=== PATIENT | male | born 1965 | race Caucasian/White ===

== ENCOUNTER 2024-07-14 16:16 | Outpatient (AMB) | payer OTHER, SELFPAY ==
--- NOTE | 2024-07-14 16:34 | MHC.PC.OV ---
Vital Signs 07/14/24 16:35 Height 5 ft 8 in Weight 198 lb 6 oz BMI 30.2 BP 108/64 Blood Pressure Location Lt brachial Position Sitting Pulse 74 Pulse Source Pulse Oximeter Pulse Oximetry (%) 96 Oxygen Delivery Method Room Air Intake Visit Reasons: establish care Door Trimmer Required: No Accompanied by: Self / Same As Patient Allergies penicillin G [PENICILLIN G] Allergy (Intermediate, Verified 07/14/24 16:47) RASH Medication List - Last Reconciled 07/14/24 by Ramsey Conklin MD azelastine 1 spray intranasal BID fluticasone propionate 50 mcg/actuation 1 spray intranasal DAILY levocetirizine (Xyzal) 5 mg PO DAILY Tobacco use date assessed: 07/14/24 Dental Screening Dental Screen Date: 07/14/24 Did you have a dental visit in the last 12 months?: Yes Did you have a dental problem in the last 6 months where you did not have access to dental care?: No Was dental information given to patient?: Patient has dentist HPI establish care HPI Details Patient comes in today his annual physical examination and reestablish care - he has not been back in over 4 years and was last seen here on 04/26/2020 Patient states that he feels well and has not had any significant issues since he was last seen here He denies any headaches or dizziness Denies any chest pains, no shortness of breath No nausea/ vomiting, no abdominal pain No change in bowel habits noted He denies any acute urinary symptoms He would like to have some testing done for STDs as well together with his other routine labs - states that he has no symptoms of STDs but just wants to get checked and be safe Relates that he has had his screening colonoscopy last done with Dr. Merrill sometime in 2018 and was advised that his next colonoscopy will be in 10 years (2027) [facility] Medical History (Updated 07/15/24 @ 04:14 by Ramsey Conklin MD) Obesity (BMI 30-39.9) Overweight (BMI 25.0-29.9) Allergic rhinitis Surgical History (Updated 07/14/24 @ 16:56 by Ramsey Conklin MD) History of colonoscopy Family History Other Family history non-contributory Social History Housing: House Alcohol intake: former Patient Tobacco Use Status: Former Tobacco user e-Cigarette/Vaping Use: Currently Using service: No Current occupational status: employed Current occupational exposures/hazards: No Cognitive needs: No Hearing needs: No Vision needs: No Questionnaire PHQ-9 Over the last 2 weeks, how often have you been bothered by any of the following problems? 1. Little interest or pleasure in doing things: not at all 2. Feeling down, depressed, or hopeless: not at all 3. Trouble falling or staying asleep, or sleeping too much: not at all 4. Feeling tired or having little energy: not at all 5. Poor appetite or overeating: not at all 6. Feeling bad about yourself - or that you are a failure or have let yourself or your family down: not at all 7. Trouble concentrating on things, such as reading the newspaper or watching television: not at all 8. Moving or speaking so slowly that other people could have noticed. Or the opposite - being so fidgety or restless that you have been moving around a lot more than usual: not at all 9. Thoughts that you would be better off or of hurting yourself in some way: not at all Total score: 0 Depression Screening Interpretation: Negative Depression Screening Done: Yes 33273 - PHQ-9 Billing: Yes Source: Developed by Drs. Nikita Segovia, Karishma Pena, Domenic Coelho and colleagues, with an educational nivia from [employer]. Thrive Questionnaire Date Thrive assessed: 07/14/24 I am a: Patient What is your living situation today?: I have a steady place to live Within the past 12 months, did the food you bought not last and you didn't have the money to get more?: Never true Within the past 12 months, did you worry whether your food would run out before you got money to buy more?: Never true Do you have trouble paying for medicines?: No Do you have trouble getting transportation to medical appointments?: No Do you have trouble paying your heating and electricity bill?: No Do you have trouble taking care of your child, family member or friend?: No Do you have trouble with day-to-day activities such as bathing, preparing meals, shopping, managing finances, etc.?: No Are you currently unemployed and looking for a job?: No Are you interested in more education?: No Please select the resources that you would like help with: None Currently or been in a relationship where the following occur: I choose not to answer THRIVE Score: 0 AUDIT C Alcohol Use Questionnaire (AUDIT-C) 1. How often do you have a drink containing alcohol?: Monthly or less 2. How many drinks containing alcohol do you have on a typical day when you are drinking?: 1 or 2 3. How often do you have six or more drinks on one occasion?: Never Total Score: 1 Score Reviewed/Action Taken: Yes ELIU-7 AMB Questionnaire ELIU-7 Date ELIU - 7 assessed: 07/14/24 Feeling nervous, anxious, or on edge: 0 = Not at all Not being able to stop or control worryin = Not at all Worrying too much about different things: 0 = Not at all Trouble relaxin = Not at all Being so restless that it is hard to sit still: 0 = Not at all Becoming easily annoyed or irritable: 0 = Not at all Feeling afraid as if something awful might happen: 0 = Not at all Total ELIU-7 score (0-4 normal; 5-9 mild; 10-14 moderate; 15-21 severe): 0 Source: Developed by Drs. Nikita Segovia, Karishma Pena, Domenic Coelho and colleagues, with an educational nivia from [employer]. Review of Systems Const Denies chills, Denies fatigue, Denies fever(s), Denies headache(s), Denies malaise and Denies weakness Eyes Denies blurry vision, Denies change in vision, Denies irritation and Denies itchy eyes ENT Denies dysphagia, Denies dizziness, Denies otalgia, Denies headache(s), Denies nasal congestion, Denies neck pain, Denies odynophagia and Denies sore throat Card Denies chest pain, Denies rapid heart rate, Denies irregular heart rhythm, Denies palpitations and Denies dyspnea Resp Denies chest congestion, Denies cough, Denies dyspnea and Denies wheezing GI Denies abdominal pain, Denies bloating, Denies constipation, Denies dysphagia, Denies heartburn, Denies diarrhea, Denies nausea, Denies odynophagia and Denies vomiting Denies hematuria, Denies difficulty urinating, Denies dysuria, Denies urinary frequency and Denies urinary urgency Musc Denies back pain, Denies arthralgias, Denies joint swelling, Denies muscle weakness and Denies neck pain Skin/Breast Denies change in pigmentation, Denies lesions, Denies rash and Denies unusual bruising Neuro Denies dizziness, Denies headache(s), Denies paresthesias and Denies weakness Endo Denies fatigue and Denies palpitations Aller/Immun Denies itchy eyes and Denies wheezing Physical exam (Primary Care) Vital Signs: Last Vital Signs Pulse 74 07/14/24 16:35 BP 108/64 07/14/24 16:35 Pulse Ox 96 07/14/24 16:35 Oxygen Delivery Method Room Air 07/14/24 16:35 BMI result Body Mass Index 30.2 Tobacco/Smoking Status: Tobacco use Status Tobacco use date assessed 07/14/24 07/14/24 16:40 Patient Tobacco Use Status Former Tobacco user 07/14/24 16:40 e-Cigarette/Vaping Use Currently Using 07/14/24 16:40 PHQ-9: PHQ-9 Score PHQ-9: Total score 0 07/14/24 16:57 Depression Screening Interpretation: Negative Thrive Assessment: Date of Thrive Assessment Date Thrive assessed 07/14/24 07/14/24 16:40 Currently or been in a relationship where the following occur: I choose not to answer Const General: no acute distress, alert and awake Orientation/consciousness: patient oriented x3 [facility] Head: Yes normocephalic and Yes atraumatic Ears: external ears normal, TM's normal bilaterally and EAC's normal General nose exam: No nasal discharge present Face and sinus: Yes normal facial exam and Yes sinuses nontender Teeth and gingiva: dentition normal Throat: Yes posterior oropharynx normal and Yes tonsils normal (no TP congestion) Eyes Eyelids: Yes eyelids normal Conjunctivae: conjunctivae normal Pupils: Equal, round and reactive pupils present EOM: EOMs intact bilaterally Neck Neck: Yes no lymphadenopathy and Yes supple Thyroid: Thyroid normal Resp Auscultation: clear to auscultation bilaterally, no rales and no wheezes Cardio Rate: regular rate Rhythm: regular rhythm Heart sounds: no murmurs GI Palpation (GI): Soft to palpation, nontender and No hepatosplenomegaly present Auscultation: normal bowel sounds General: Yes no CVA tenderness Back/Spine/Pelvis Back: no CVA tenderness Thoracic/Lumbar Spine: thoracic and lumbar spine normal to inspection Skin Lesions: no lesions Rashes: no rashes Neuro General: patient oriented x3, moves all extremities, no focal motor deficits and CN's II-XI intact bilaterally Cranial nerves: Yes Equal, round and reactive pupils present Cognition (Neuro): normal cognition Gait exam (Neuro): Normal gait present Extrem General: Yes no clubbing, cyanosis or edema Coding Level of Care Code New Pt Prev Care 40-64y(59912) Diagnoses Annual physical exam Z00.00 Allergic rhinitis, unspecified seasonality, unspecified trigger J30.9 Allergic rhinitis trigger: unspecified Allergic rhinitis seasonality: unspecified Obesity (BMI 30-39.9) E66.9 Additional Codes PHQ-9 - 89993 - PHQ-9 Billing: Yes ([id number]) Assessment & Plan Assessment & Plan (1) Annual physical exam: Code(s): Z00.00 - Encounter for general adult medical examination without abnormal findings Category: Medical Plan: Check labs Per request, will also include HIV and STD testing with his routine lab orders He is up-to-date with his colon cancer screening - he reportedly had his next screening colonoscopy last done with Dr. Merrill in 2018 and was advised that his next colonoscopy will be in 10 years (2027) (2) Allergic rhinitis: Code(s): J30.9 - Allergic rhinitis, unspecified Category: Medical Qualifiers: Allergic rhinitis trigger: unspecified Allergic rhinitis seasonality: unspecified Qualified Code(s): J30.9 - Allergic rhinitis, unspecified Plan: Continue levo cetirizine 5 mg QD PRN and Fluticasone 50 mcg nasal spray QD PRN Patient also uses OTC Azelastine nasal spray BID PRN as an alternative to Fluticasone when he feels that Fluticasone is not effective (3) Obesity (BMI 30-39.9): Code(s): E66.9 - Obesity, unspecified Category: Medical Plan: Reinforced of diet/exercise as tolerated/lose weight - patient has gained some weight since he was last seen here over 4 years ago Plan To return in 1 year for his next annual physical examination Orders: Orders Hepatitis B,C Profile 07/14/24 Z20.2 - Contact with and (suspected) exposure to infections with a predominantly sexual mode of transmission Syphilis Screen 07/14/24 Z20.2 - Contact with and (suspected) exposure to infections with a predominantly sexual mode of transmission Comprehensive [place]. Panel Fast 07/14/24 E78.00 - Pure hypercholesterolemia, unspecified, Z00. - Encounter for general adult medical examination without abnormal findings Lipid Panel 07/14/24 E78.00 - Pure hypercholesterolemia, unspecified, Z00.00 - Encounter for general adult medical examination without abnormal findings UA CC w/rflx Micro + Cult 07/14/24 R30.0 - Dysuria, Z00. - Encounter for general adult medical examination without abnormal findings Vitamin D 25-OH Total 07/14/24 E55.9 - Vitamin D deficiency, unspecified, Z00. - Encounter for general adult medical examination without abnormal findings HIV Ab/Ag 07/14/24 Z20.2 - Contact with and (suspected) exposure to infections with a predominantly sexual mode of transmission CT NG by PCR 07/14/24 Z20.2 - Contact with and (suspected) exposure to infections with a predominantly sexual mode of transmission Complete Blood Count Auto Diff 07/14/24 D64.9 - Anemia, unspecified, Z00.00 - Encounter for general adult medical examination without abnormal findings TSH reflex Free T4 07/14/24 E78.00 - Pure hypercholesterolemia, unspecified, Z00.00 - Encounter for general adult medical examination without abnormal findings
[2024-07-14 16:35] VITALS: BP 108/64; PULSE 74; O2SAT 96; BMI 30.2
== END 2024-07-14 17:03 | disposition home or self-care (01) ==
PROVIDERS: Visit Provider Internal Medicine
DX: Z00.00 Encounter for general adult medical examination without abnormal findings (principal); J30.9 Allergic rhinitis, unspecified; E66.9 Obesity, unspecified; Z68.30 Body mass index [BMI] 30.0-30.9, adult

== ENCOUNTER → 2024-07-14 16:16 | Outpatient (BNVA) | payer OTHER, SELFPAY | PROVIDERS: Visit Provider Internal Medicine | DX: Z00.00 Encounter for general adult medical examination without abnormal findings (principal); J30.9 Allergic rhinitis, unspecified; E66.9 Obesity, unspecified; Z68.30 Body mass index [BMI] 30.0-30.9, adult | CPT/HCPCS: 96127 ==

== ENCOUNTER 2024-09-07 06:19 | Outpatient (REF) | payer OTHER, SELFPAY ==
--- OUTSIDE RECORDS SUMMARY | 2024-09-07 06:23 | XMS_ITS | Clinical Summary ---
Author Organization [facility] Address [address] [place] [address] Care Team Providers Care Drum Tender Name Role Phone Gordo Noble Primary Care Provider Unavailabl e Medications Levocetirizine Dihydrochloride (XYZAL) 5 MG tablet TAKE 1 TABLET AT BEDTIME NEEDED 90 0 0 Active montelukast (SINGULAIR) 10 MG tablet Take 1 tablet daily 90 tablet 0 0 Active amLODIPine Besylate (NORVASC) 5 MG tablet TAKE 1 TABLET DAILY (NEED APPOINTMENT) 90 0 0 Active Azelastine HCl (ASTELIN) 0.1 % nasal spray SPRAY TWICE IN EACH NOSTRIL TWICE DAILY NEEDED 30 2 0 Active FLUTICASONE PROPIONATE, NASAL, (FT Allergy Relief 24 HR) 50 MCG/ACT nasal spray SPRAY TWICE IN BOTH NOSTRILS ONCE A DAY 16 2 0 Active Vitamin D, Ergocalciferol, (VITAMIN D-2) 1.25 MG (42198 UT) capsule take 1 capsule by mouth every week 12 0 0 Active Butorphanol Tartrate (STADOL) 10 MG/ML nasal spray INSTILL 1 SPRAY IN ONE NOSTRIL AT ONSET OF HEADACHE. MAY REPEAT IN 4 HOURS IF NEEDED. MUST LAST 14 DAYS 2.5 0 0 Active Pantoprazole Sodium (PROTONIX) 40 MG EC tablet Take 1 tablet daily 90 tablet 0 1 Active Losartan Potassium-HCTZ (HYZAAR) 50-12.5 MG per tablet TAKE 1 TABLET DAILY (NEED APPOINTMENT) 90 0 1 Active Azelastine HCl (OPTIVAR) 0.05 % ophthalmic solution INSTILL 1 DROP IN BOTH EYES EVERY 12 HOURS DAILY. 1 1 2 Active montelukast (SINGULAIR) 10 MG tablet Take 1 tablet daily 90 tablet 0 3 Active Dicyclomine HCl (BENTYL) 20 MG tablet Take 1 tablet daily 30 tablet 0 6 Active predniSONE (DELTASONE) 20 MG tablet TAKE 2 TABLET Daily 10 tablet 0 7 Active Active Problems Problem Noted Date Diagnosed Date Allergic reaction 11/25/2016 Low vitamin B12 level 01/21/2015 Acute low back pain 11/10/2013 Cluster headache, episodic 09/14/2013 Overview (06/27/2023): Transitioned From: Intractable Cluster Headache Abnormal electrocardiogram 09/09/2012 Vitamin D deficiency 01/27/2010 Extrinsic asthma 12/06/2009 Overview (06/27/2023): Transitioned From: Wheezing Hypertension 04/05/2009 Allergic rhinitis 04/05/2009 GERD without esophagitis 04/05/2009 Classic migraine with aura 04/05/2009 Crohn's disease 04/05/2009 Benign essential hypertension 04/05/2009 Immunizations Name Administration Dates Next Due Influenza (SEASONAL) - 03/17/2015,05/24/2011 PPD/TST (Tuberculin Skin Test) 03/18/2010 Tdap 09/25/2014 Family History Medical History Relation Name Comments Neuromuscular Disorder Father Elgin hernandez Disease : Father Cancer - Breast Mother Breast Cance r : Mother Relation Name Status Comments Father Mother Social History Tobacco Use Types Packs/Day Years Used Date Smoking Tobacco: Never Assessed Comments:Smoking Status:No c urrent tobacco use Sex and Gender Information Value Date Recorded Sex Assigned at Not on file Legal Sex Male 6:35 PM EDT Gender Identity Not on file Sexual Orientation Not on file Last Filed Vital Signs Vital Sign Reading Time Taken Comments Blood Pressure 112/70 11/25/2016 2:49 PM EDT Pulse 85 11/25/2016 2:49 PM EDT Temperature 37.5 ??C (99.5 ??F) 11/25/2016 2:49 PM ED T Respiratory Rate 16 11/25/2016 2:49 PM EDT Oxygen Saturation 98% 11/25/2016 2:49 PM EDT Inhaled Oxygen Concentration - - Weight 75.3 kg (166 lb 0.1 oz) 11/25/2016 2:49 P M EDT Height 174 cm (5' 8.5 ) 11/25/2016 2:49 PM EDT Body Mass Index 24.87 11/25/2016 2:49 PM EDT Plan of Treatment Health Maintenance Due Date Last Done Comments Hepatitis C Screening 1965 Pneumococcal 50+ years (1 of 1 - PCV) 2014 Zoster (Shingrix) (1 of 2) 2014 COVID-19 Vaccine ( - 2023-2 5 season) 2024 Influenza (#1) 2024 03/17/2015, 05/24/2011 DTaP/Tdap/Td (2 - Td or Tdap) 09/25/2024 09/25/2014 RSV (1 - 1-dose 75+ series) 09/03/2039 HPV Vaccine Aged Out No longer eligi ble based on patient's age to complete this topic Hep A Aged Out No longer eligi ble based on patient's age to complete this topic Hep B Aged Out No longer eligi ble based on patient's age to complete this topic Hib Aged Out No longer eligi ble based on patient's age to complete this topic Meningococcal ACWY Aged Out No longer eligible based on patient's age to complete this topic Zoster (Zostavax) Discontinued Care Teams Drum Tender Relationship Specialty Start Date End Date Real Gordo PCP - General 12/28/22
[2024-09-07 06:40] LABS: MANUAL DIFF FLAG NO
[2024-09-07 07:53] LABS: Basophils Percent Auto 0.7 % (0-2); Eosinophils Absolute Auto 0.2 X10*3/uL (0.0-0.4); Eosinophils Percent Auto 3.7 % (0-4); Hematocrit 46.8 % (42.0-52.0); Hemoglobin 15.7 g/dl (14.0-18.0); Imm Gran Abs Auto 0.01 X10*3/uL (0.00-0.03); Imm Gran Pct Auto 0.2 % (0.0-0.4); Lymphocytes Absolute Auto 2.1 X10*3/uL (1.2-4.9); Lymphocytes Percent Auto 35.1 % (20-40); Mean Corpuscular HGB Conc 33.5 g/dl (31.0-36.0); Mean Corpuscular Hemoglobin 28.5 pg (27.0-33.0); Mean Corpuscular Volume 84.9 fL (80.0-98.0); Mean Platelet Volume 9.5 fL (9.4-12.4); Monocytes Absolute Auto 0.6 X10*3/uL (0.1-1.2); Monocytes Percent Auto 9.3 % (2-11); Neutrophils Absolute Auto 3.1 x10*3/uL (2.0-8.3); Platelet Count 237 X10*3/uL (160-400); Red Blood Count 5.51 X10*6/uL (4.60-5.80); Red Cell Distribution Width 13.2 % (11.0-16.0)
[2024-09-07 08:33] LABS: HBS Num1 8.69 mIU/mL (0-7.99); HBc Num1 0.09 S/CO (0.00-0.79); HBsAGNum1 0.28 S/CO (0.00-0.99); HIV AB/AG Nonreactive (Nonreactive); HIV Num 1 0.07 S/CO (0.00-0.99); Hepatitis B Core Antibody Nonreactive (Nonreactive); Hepatitis B Surface Antigen Negative (Negative); Syphilis Screen Nonreactive (Nonreactive); ~HepC Num1 0.08 S/CO (0.00-0.79); ~Hepatitis C Antibody Nonreactive (Nonreactive)
[2024-09-07 09:00] LABS: Appearance Urine Clear; Color Urine Yellow; Glucose Urine UA Negative (Negative); Leukocyte Esterase Urine Negative (Negative); Nitrite Urine Negative (Negative); Specific Gravity - Urine 1.025 (1.005-1.025); Urine Blood Negative (Negative); Urine Ketones Trace mg/dL (Negative); Urine Protein Negative (Neg-Trace)
[2024-09-07 09:20] LABS: Alanine Aminotransferase 21 U/L (0-40); Albumin Level 4.2 g/dL (3.5-5.0); Anion Gap 12 (12-20); Aspartate Amino Transferase 37 U/L (5-37); Bilirubin Total 0.4 mg/dL (0.0-1.0); Blood Urea Nitrogen 17 mg/dL (9-16); Calcium 9.1 mg/dL (8.4-10.2); Carbon Dioxide 25 mmol/L (22-29); Chloride 108 mmol/L (96-108); Cholesterol 171 mg/dL (<200); Estimated Glomerular Filt Rate > 60; Glucose Fasting 95 mg/dL (60-99); HDL Cholesterol 44 mg/dL (>40); LDL Cholesterol Calculated 95 mg/dL (<100); Potassium 3.9 mmol/L (3.3-5.1); Sodium 141 mmol/L (135-145); Total Protein 6.7 g/dL (6.5-8.0); Triglycerides 161 mg/dL (<150)
[2024-09-07 09:43] LABS: Vitamin D 25-OH Total 48.1 ng/mL (>30)
[2024-09-07 09:46] LABS: HBS Num2 8.08 mIU/mL (0-7.99); ~Hepatitis B Surface Antibody GRAYZONE (Nonreactive)
[2024-09-07 09:53] LABS: Alkaline Phosphatase 62 U/L (39-117)
== END 2024-09-07 06:20 | disposition home or self-care (01) ==
LOC: HO.LAB 06:19
PROVIDERS: PCP Internal Medicine; Visit Provider Internal Medicine
DX: Z20.2 Contact with and (suspected) exposure to infections with a predominantly sexual mode of transmission (principal); D64.9 Anemia, unspecified; E78.00 Pure hypercholesterolemia, unspecified; R30.0 Dysuria; Z00.00 Encounter for general adult medical examination without abnormal findings; E55.9 Vitamin D deficiency, unspecified
CPT/HCPCS: 36415; 80053; 80061; 81003; 82306; 84443; 85025; 86704; 86706; 86780; 86803; 87340; 87389